=== PATIENT | male | born 1970 | race African-American/Black ===

== ENCOUNTER 2021-02-11 07:48 | Emergency (ER) | payer SELFPAY ==
[~2021-02-11] VITALS: Ht 180.3 cm; Wt 100.0 kg
[2021-02-11 07:51] VITALS: BP 137/89
[2021-02-11] MEDS ORDERED: TOPUD PO (08:06)
== END 2021-02-11 08:52 | disposition home or self-care (01) ==
LOC: ER 07:48
DX: S00.83XA Contusion of other part of head, initial encounter (principal); F99 Mental disorder, not otherwise specified; Y08.89XA Assault by other specified means, initial encounter; Y93.89 Activity, other specified; Y92.488 Other paved roadways as the place of occurrence of the external cause
CPT/HCPCS: 99283; Z7610